=== PATIENT | female | born 1960 | race Caucasian/White ===

== ENCOUNTER 2024-05-11 11:31 | Outpatient (CLI) | payer BC | END 2024-05-11 11:32 | disposition home or self-care (01) | LOC: CSHMAMMO 11:31 | PROVIDERS: ATTEND Obstetrics & Gynecology | DX: Z12.31 Encounter for screening mammogram for malignant neoplasm of breast (principal); Z98.82 Breast implant status | CPT/HCPCS: 77063; 77067 ==